=== PATIENT | male | born 1995 | race Caucasian/White ===

== ENCOUNTER 2017-02-03 10:19 | Emergency (ER) | payer OTHER ==
[2017-02-03 10:31] VITALS: BP 145/55; PULSE 68; TEMP 98.3; BMI 24.2
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
== END 2017-02-03 12:05 | disposition left against medical advice (07) ==
LOC: JERFT 10:19
DX: Z53.21 Procedure and treatment not carried out due to patient leaving prior to being seen by health care provider (principal)
CPT/HCPCS: 99281-25